=== PATIENT | male | born 2000 | race Caucasian/White ===

== ENCOUNTER 2022-12-15 13:37 | Emergency (ER) | payer MEDICAID ==
[~2022-12-15] VITALS: Ht 165.1 cm; Wt 74.8 kg
[2022-12-15 13:40] VITALS: BP 131/81; PULSE 94; RESP 18; TEMP 97; O2SAT 99
[2022-12-15] MEDS ORDERED: BACITRACIN OINT 500 UNITS/GM PKT TP ONE (14:05)
[2022-12-15] MEDS ORDERED: LIDOCAINE MPF 1% 5 ML ONE (14:18)
[2022-12-15] MEDS ORDERED: KEN.5O TP (14:18)
[2022-12-15] MEDS ORDERED: IBUP-2213 PO (14:18)
[2022-12-15] MEDS ORDERED: BACI-418 TP (14:31)
[2022-12-15 15:18] VITALS: BP 131/81; PULSE 94; RESP 18; TEMP 97; O2SAT 99
== END 2022-12-15 15:18 | disposition home or self-care (01) ==
LOC: MED 13:37
DX: S90.111A Contusion of right great toe without damage to nail, initial encounter (principal); X58.XXXA Exposure to other specified factors, initial encounter; Y93.89 Activity, other specified; Y92.89 Other specified places as the place of occurrence of the external cause; Y99.8 Other external cause status
CPT/HCPCS: 73660; 90471; 90715; 99283; J2001